=== PATIENT | female | born 1985 | race Caucasian/White ===

== ENCOUNTER → 2017-08-28 | Outpatient (CLI) | payer OTHER ==
--- NOTE | 2017-08-28 14:43 | RAD ---
Examination: 3 views of the left ankle History: History of fall, pain Comparison: None available Findings: The alignment of the ankle joint grossly appears unremarkable.On the oblique view there is subtle step-off identified in the left navicular bone could be in part due to positioning or nondisplaced fracture. Impression: 1. Subtle step-off identified in the navicular bone as seen on the oblique view could be due to positioning or nondisplaced fracture. Correlate for point tenderness. Recommend plain film radiograph foot for further evaluation. 2. The ankle mortise appears intact.
--- NOTE | 2017-08-28 15:16 | RAD ---
Examination: 3 views of the left foot History: History of fall Comparison: None available Findings: The alignment of the tarsal bones grossly appears unremarkable. There is no obvious acute fracture identified. The visualized navicular bone grossly appears unremarkable. Impression: No acute osseous findings
== END | disposition home or self-care (01) ==
LOC: PMG 14:11
PROVIDERS: ATTEND Physician Assistant Medical
DX: S93.402A Sprain of unspecified ligament of left ankle, initial encounter (principal); W19.XXXA Unspecified fall, initial encounter; Y93.89 Activity, other specified; Y92.89 Other specified places as the place of occurrence of the external cause; Y99.8 Other external cause status
CPT/HCPCS: 73610; 73630

== ENCOUNTER → 2018-06-20 | Outpatient (CLI) | payer BC, OTHER ==
--- NOTE | 2018-06-20 16:46 | RAD ---
EXAM: Pelvic sonogram. HISTORY: Irregular periods. TECHNIQUE: Transabdominal and transvaginal sonographic imaging of the pelvis was performed. COMPARISON: None. FINDINGS: The uterus measures 5.7 x 4.4 x 2.8 cm transvaginally. There is a 1.3 cm fibroid within the uterine fundus. This appears to abut the endometrium, but does not clearly submucosal. The right ovary measures 1.4 x 1.0 x 1.5 cm. The left ovary measures 1.1 x 1.3 x 1.2 cm. There is normal blood flow within both ovaries. There is no adnexal mass or cyst. There is no pelvic free fluid. The endometrial stripe measures 3 mm in thickness IMPRESSION: 1. 1.3 cm uterine fibroid. 2. Otherwise, unremarkable pelvic sonogram. Electronically signed by: Lindsay Hoffmann MD (06/20/2018 4:43 PM) [id number]
== END | disposition home or self-care (01) ==
LOC: US 14:52
PROVIDERS: ATTEND Obstetrics & Gynecology
DX: D25.9 Leiomyoma of uterus, unspecified (principal)
CPT/HCPCS: 76830; 76856

== ENCOUNTER → 2018-10-02 | Outpatient (CLI) | payer BC ==
[~2018-10-02] MED LIST: IOHEXOL 300 MG/ML 75 ML VIAL. INT UTERIN ONE
--- NOTE | 2018-10-02 10:05 | RAD ---
EXAM: Hysterosalpingogram. HISTORY: Infertility. TECHNIQUE: The risks of the procedure were discussed with the patient and written and verbal consent was obtained. A timeout was performed. The patient was placed in a supine position on the fluoroscopy table and a speculum was inserted into the vagina. The cervix was identified and cleansed with Betadine. A catheter was then advanced into the endometrial cavity and a catheter balloon was insufflated. 10 cc contrast was then gently hand injected into the endometrial cavity and fluoroscopic images were obtained in multiple obliquities. The catheter and speculum were removed. The patient experienced no complication during the procedure. A total of 9 fluoroscopic images were obtained for total fluoroscopy time of less than 1 minute. COMPARISON: Pelvic sonogram dated 06/20/2018. FINDINGS: There is contrast opacification of an arcuate uterus. There is a small round filling defect within the right uterine cornu which persists on multiple images in different obliquities, favoring a small polyp or submucosal fibroid rather than air bubble. There is normal contrast opacification of the left fallopian tube and free spillage of contrast into the left peritoneal cavity. There is slight contrast opacification of the right fallopian tube, without free spillage into the peritoneal cavity. IMPRESSION: 1. Patent left fallopian tube with normal spillage of contrast into the peritoneal contrast. 2. Small round filling defect within the right uterine cornu which persists despite patient repositioning, favoring a small polyp or submucosal fibroid. There is slight contrast opacification of the right fallopian tube. However, there is no free spillage of contrast from the right fallopian tube into the peritoneal cavity. This favors a component of obstruction from the aforementioned lesion. Hysteroscopy may be useful for characterization and possible treatment. 3. Arcuate uterus. Electronically signed by: Lindsay Hoffmann MD (10/02/2018 10:02 AM) [email or web address]
== END | disposition home or self-care (01) ==
LOC: RAD 07:54
PROVIDERS: ATTEND Obstetrics & Gynecology
DX: D25.9 Leiomyoma of uterus, unspecified (principal); N97.8 Female infertility of other origin
CPT/HCPCS: 58340; 74740; Q9967

== ENCOUNTER → 2019-08-10 | Outpatient (CLI) | payer BC ==
--- NOTE | 2019-08-10 15:41 | RAD ---
AP and Lateral Views of the Chest 08/10/2019 12:00 AM Indication: Cough, congestion. Comparison: None Findings: There is no focal consolidation or infiltrate identified. The cardiomediastinal silhouette is within normal limits. There is no evidence of pneumothorax or pleural effusion. No acute osseous abnormalities are identified. Impression: No evidence of acute cardiopulmonary process. Electronically signed by: Martinez Goodman MD (08/10/2019 3:39 PM) [id number]
== END | disposition home or self-care (01) ==
LOC: DXRAD 14:21
PROVIDERS: ATTEND Internal Medicine
DX: R06.09 Other forms of dyspnea (principal)
CPT/HCPCS: 71046

== ENCOUNTER → 2021-10-19 | Outpatient (CLI) | payer OTHER ==
--- NOTE | 2021-10-19 16:04 | RAD ---
EXAM: Right lower extremity venous Doppler. HISTORY: Right lower extremity pain/swelling. COMPARISON: None. FINDINGS: Grayscale and Doppler analysis of the right lower extremity deep venous system was performe d with graded compression and augmentation. The common femoral, greater saphenous, superficial femora l, popliteal and calf veins were assessed. There is no evidence of deep venous thrombosis. IMPRESSION: 1. No evidence of deep venous thrombosis. Electronically signed by: Grady Cruz MD (10/19/2021 4:02 PM) [id number]
== END ==
LOC: US 14:56
PROVIDERS: ATTEND Physician Assistant Medical
DX: M79.662 Pain in left lower leg (principal)
CPT/HCPCS: 93971